=== PATIENT | male | born 1995 | race Caucasian/White ===

== ENCOUNTER 2022-06-23 20:32 | Emergency (ER) | payer OTHER ==
[~2022-06-23] VITALS: Ht 177.8 cm; Wt 79.4 kg
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
[2022-06-23] MEDS ORDERED: CYCLOBENZAPRINE 10 MG TABLET PO ONE (21:00)
[2022-06-23] MEDS ORDERED: KETOROLAC TROMETHAMINE INJ 60 MG/2 ML VIAL IM ONE (21:00)
[2022-06-23] MEDS ORDERED: CYCLOBENZAPRINE 10 MG TABLET ONE (21:08)
[2022-06-23] MEDS ORDERED: KETOROLAC TROMETHAMINE INJ 30 MG/ML VIAL ONE (21:08)
[2022-06-23] MEDS ORDERED: CYCL10TA9 PO (22:01)
[2022-06-23] MEDS ORDERED: IBUP-1955 PO (22:01)
--- NOTE | 2022-06-23 22:12 | NUR ---
Patient discharged to home in stable condition. Written and verbal after care instructions given. Patient verbalizes understanding of instruction.
[2022-06-23 22:14] VITALS: BP 168/91
== END 2022-06-23 22:14 | disposition home or self-care (01) ==
LOC: ER 20:37
DX: S39.012A Strain of muscle, fascia and tendon of lower back, initial encounter (principal); M25.561 Pain in right knee; V89.2XXA Person injured in unspecified motor-vehicle accident, traffic, initial encounter; Y93.89 Activity, other specified; Y92.89 Other specified places as the place of occurrence of the external cause; Y99.8 Other external cause status
CPT/HCPCS: 99284; 70450; 96372; 72100; 73564 ×2; 70486; J1885